=== PATIENT | male | born 1970 | race Hispanic/Latino ===

== ENCOUNTER 2024-10-05 21:26 | Emergency (ER) | payer BC ==
[~2024-10-05] VITALS: Ht 180.3 cm; Wt 99.8 kg
[~2024-10-05 21:26] MED LIST: ALTOPREV40 MG PO; LEVOTHYROXINE50 MCG PO
[2024-10-05 21:30] VITALS: PULSE 65; RESP 18; TEMP 98.6
[2024-10-05] MEDS: KETOROLAC TROMETHAMINE 60 MG/2 ML VIAL IM ONE (22:18)
[2024-10-05] MEDS: METHOCARBAMOL 750 MG TAB PO ONE (22:19)
[2024-10-05] MEDS: ACETAMINOPHEN 325 MG TAB PO ONE (22:19)
[2024-10-05] MEDS ORDERED: METHOCARBAMOL750 MG PO (23:15)
[2024-10-05] MEDS ORDERED: KETOROLAC TROME10 MG PO (23:15)
[2024-10-06 00:36] VITALS: BP 142/72; PULSE 71; RESP 18; TEMP 98.3; O2SAT 98
== END 2024-10-05 23:28 | disposition home or self-care (01) ==
LOC: FSED 21:29
DX: M54.50 Low back pain, unspecified (principal); X50.0XXA Overexertion from strenuous movement or load, initial encounter; E03.9 Hypothyroidism, unspecified
CPT/HCPCS: 74176; 81003; 99283; J1885